=== PATIENT | female | born 1985 | race Caucasian/White ===

== ENCOUNTER 2018-07-25 03:12 | Inpatient (IN) | payer MEDICAID ==
[~2018-07-25] VITALS: Ht 157.5 cm; Wt 66.8 kg
[~2018-07-25 03:12] MED LIST: PREN1TAB13 PO
[2018-07-25 03:45] VITALS: BP 113/61; PULSE 77; RESP 18
[2018-07-25] MEDS ORDERED: LACTATED RINGER'S 1,000 ML IV SCH (04:55)
[2018-07-25] MEDS ORDERED: LACTATED RINGER'S 1,000 ML IV PRN (04:55)
[2018-07-25] MEDS ORDERED: OXYTOCIN 30 UNITS/LR 500 ML IV PRN ×2 (05:00→11:00)
[2018-07-25] MEDS ORDERED: OXYTOCIN 30 UNITS/LR 500 ML IV SCH ×3 (05:00→10:34)
[2018-07-25] MEDS ORDERED: MISOPROSTOL 200 MCG TAB PR PRN ×2 (05:00→11:00)
[2018-07-25] MEDS ORDERED: LIDOCAINE 1% (MPF) 30 ML INJ INJ PRN (05:00)
[2018-07-25] MEDS ORDERED: BUTORPHANOL 2 MG INJ IV PRN (05:00)
[2018-07-25] MEDS ORDERED: METHYLERGONOVINE 0.2 MG INJ IM PRN ×2 (05:00→11:00)
[2018-07-25] MEDS ORDERED: MINERAL OIL LIGHT 10 ML VIAL TOP ONE (05:00)
[2018-07-25] MEDS ORDERED: IBUPROFEN 600 MG TAB PO PRN (05:00)
[2018-07-25] MEDS ORDERED: CARBOPROST 250 MCG INJ IM PRN ×2 (05:00→11:00)
--- NOTE | 2018-07-25 05:17 | TRIAGE ---
OB Triage Datetime Report Generated by CPN: 07/25/2018 05:16 Datetime: 07/25/2018 04:30 Stage of : OB Triage Datetime: 07/25/2018 04:07 Stage of : OB Triage Labor Evaluation Frequency: 2-7 Monitor Mode: External Duration (sec)2399: 60 Quality: Moderate Pattern: Normal: <= 5 Contractions in 10 Minutes Resting Tone [place]: Relaxed Heart Rate FHR Baseline Rate: 120 Monitor Mode: External US FHR Baseline Changes: No Baseline Change Variability: Moderate 6-25 bpm Accelerations: 15X15 Decelerations: None Category: Category I Pain Assessment Pain Scale: 8 Pain Presence: Intermittent Pain Type: Contraction Pain Location: Abdomen Vaginal Exam Dilatation (cms): 4.0 Effacement (%): 80 Station: -1 Exam By: Ti Conner Status: Intact Vaginal Bleeding: Scant Cervix, Consistency: Soft Cervix, Position: Posterior Presentation 'A': Cephalic Datetime: 07/25/2018 03:47 Time of Arrival: 07/25/2018 03:10 EGA: 38.0 Arrived By: Wheelchair Arrived From: Home Chief Complaint: c/o ucs and spotting. BTL consent. 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 per PNR Movement: Present Contractions: Regular Time Contractions Began: 07/24/2018 20:00 Contractions: q4 Rupture of Membranes: Denies Vaginal Bleeding: Scant Vaginal Discharge: Present Recent Sexual Intercouse: Denies Abdominal Trauma: Not Applicable Patient Complaints: Contractions Time Provider Notified: 07/25/2018 04:30 Provider Notified: Dr Andrade Initial Plan: EFM,SVE Datetime: 07/25/2018 03:23 Stage of : OB Triage Maternal Assessment Level of Consciousness: Fully Conscious Headache: Denies Blurred Vision: No Respiratory Effort: Unlabored Nausea/Vomiting: Denies RUQ Epigastric Pain: Denies Facial Edema: None Monitor Mode: External Resting Tone [place]: Relaxed Heart Rate FHR Baseline Rate: 120 Monitor Mode: External US Pain Assessment Pain Scale: 8 Pain Presence: Intermittent Pain Type: Contraction Pain Location: Abdomen
--- NOTE | 2018-07-25 09:24 | HP ---
Date/Time of Note Date/Time of Note DATE: 07/25/18 TIME: 09:23 OB - History Hx of Present Free Text/Dictation term in active labor Care: Good Care Ultrasounds: Abnormal US findings (duodenal atresia) Obstetrical Complications: Other (anatomical abnormalities) Medical Complications: None Past Family/Social History * Past Medical, Surgical, Family and Obstetric Histories reviewed from chart. OB Admission Exam Vital Signs Vital Signs Vital Signs Date Temp Pulse Resp B/P (MAP) Pulse Ox O2 O2 Flow FiO2 Time Delivery Rate 07/25/18 98.7 77 18 113/61 Room Air 03:45 (78) Physical Exam HEENT: WNL Heart: Rhythm Normal Lungs: Clear, Equal Abdomen: WNL Extremities: Normal Reflexes: Normal Cervical Dilatation: 10cm Effacement: 100% Station: +3 Membranes: Ruptured Amniotic Fluid: Clear Heart Rate: 130's Accelerations: Accelerations Present Decelerations: No Decelerations Varibility: Marked Contractions on Admission: 6-10 Minutes Apart Intensity: Moderate Last 72 hours Lab Results CBC & BMP 07/25/18 05:49 OB Assessment/Plan Reason for admission: active labor Plan: Expectant Management VALENTINA VALADEZ MD Jul 25, 2018 09:24
--- NOTE | 2018-07-25 09:25 | LDN ---
Date/Time of Note Date/Time of Note DATE: 07/25/18 TIME: 09:24 Delivery Summary NSD W/O COMPLICATIONS Placenta Delivered: Spontaneously Meconium: none Episiotomy: No Perineal laceration: 1 Anesthesia type: Local Estimated blood loss: 300 Sponge & Needle done & correct: Yes All needle counts correct: Yes Any foreign bodies felt in the: No VALENTINA VALADEZ MD Jul 25, 2018 09:25
[2018-07-25] MEDS: LACTATED RINGER'S 1,000 ML IV* SCH ×2 (10:34→18:34)
[2018-07-25 10:35] VITALS: BP 112/66; PULSE 62; RESP 19
[2018-07-25] MEDS ORDERED: HYDROCODONE/APAP (5/325) TAB PO PRN (11:00)
[2018-07-25] MEDS ORDERED: ACETAMINOPHEN 325 MG TAB PO PRN (11:00)
[2018-07-25] MEDS ORDERED: ZOLPIDEM 5 MG TAB PO PRN (11:00)
[2018-07-25] MEDS ORDERED: MAGNESIUM HYDROXIDE 30ML CUP PO PRN (11:00)
[2018-07-25] MEDS ORDERED: SENNA/DOCUSATE NA (8.6MG/50MG) TAB PO PRN (11:00)
[2018-07-25] MEDS ORDERED: DIPHENHYDRAMINE 25 MG CAP PO PRN (11:00)
[2018-07-25] MEDS ORDERED: LANOLIN HPA 1 PKT TOP PRN (11:00)
[2018-07-25 11:05] VITALS: BP 115/61; PULSE 65; RESP 18
--- NOTE | 2018-07-25 11:28 | NUR ---
0925 pt transferred in stable condition via wheelchair with [place] to [place] [id number] [address] nicu to visit baby anali oliver. baby update and information on nicu provided. in pp report to Kelsi DISLA, ff@u, pit infusing via pump at 125ml.
[2018-07-25] MEDS: BENZOCAINE 20% 56 ML SPRAY TOP PRN (12:16)
[2018-07-25] MEDS: IBUPROFEN 800 MG TAB PO SCH ×2 (12:16→18:06)
[2018-07-25] MEDS: WITCH HAZEL/GLYCERIN PAD PR PRN (12:17)
[2018-07-25 16:00] VITALS: BP 100/56; PULSE 65; RESP 19
--- NOTE | 2018-07-25 18:26 | NUR ---
EOSS:PATIENT IN STABLE CONDITION.
[2018-07-25 20:00] VITALS: BP 116/58; PULSE 61; RESP 18
--- NOTE | 2018-07-25 23:00 | NUR ---
to nicu per wheelchair to see baby.
[2018-07-26] VITALS: BP 101/69; PULSE 57; RESP 17
[2018-07-26] MEDS: IBUPROFEN 800 MG TAB PO SCH ×4 (00:01→17:40)
--- NOTE | 2018-07-26 00:05 | NUR ---
returns from nicu per wheelchair. vs stable. some uterine cramping but motrin provides relief. breast pump set up and instructed how to use, how often, how to clean and how to save milk and label and store. she verbalizes understanding.
[2018-07-26 04:00] VITALS: BP 87/50; PULSE 65
--- NOTE | 2018-07-26 06:51 | NUR ---
EOSS: VS STABLE. AFEBRILE. VOIDING QS. FUNDUS FIRM WITH MOD LOCHIA RUBRA. AMBULATES ON OWN IN ROOM. MOTRIN FOR PAIN CONTROL WITH GOOD RELIEF.
--- NOTE | 2018-07-26 07:15 | NUR ---
baby in NICU This is her 4th child. Mother has not enroll in WIC and she will consult with about it. Discussed about WIC as support system. Mom refused to pump yesterday but this morning she will try. offered assistance and education on use frequency and cleaning of breast pumnp but mother declined. Educated mom on importance of BF and frequency of pumping to keep her milk supply and also educated on Benefits of EBF Risks of formula supplement. Mom verbally understood. Reported to RN RN to follow. Addendum: 07/26/18 at 0823 by WILD CASTRO Amended: Links added.
[2018-07-26 07:50] VITALS: BP 95/52; PULSE 59; RESP 18
--- NOTE | 2018-07-26 14:07 | QN ---
Documentation Comment PPD #1 s/p and baby in NICU Pt is doing fine. Bleeding is diminished from yesterday. She is pumping q 3 hours and has some colostrum. T=98.1 BP 95/52 Fundus firm. Lochia minimal Ext NT, no edema. WBC 7.5 Hgb 10.1 Plts 170K P: Continue care and plan d/c tomorrow. JOSE M IBRAHIM MD Jul 26, 2018 14:07
--- NOTE | 2018-07-26 15:07 | NUR ---
SS NOTE: Chart reviewed. Sw spoke with Pt at the bedside. 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 Pt understands the need of admission, coping adequately. Pt shares that she found out that baby was Trisomy 21 when she was 24 weeks . Pt acknowledges that she was in denial until the . Pt did not do any research on the dx. Pt did meet with a genetic counselor through the doctor. Pt she has a good family support system and has slowly told her family about her baby's condition. pt is to Bret Shin, : 12/31/1981, he is involved and supportive. Pt received good pnc, P: 3, x1sab at 13 wks. Pt has three sons at home ages 13, 11, & 4 who are healthy and happy. Pt is a homemaker and fob works in construction. pt denies any interpersonal problems, denies illicit drug use, etoh, tobacco, cps, or mental health issues. Pt has questions and concerns about pt's baby dx, became tearful. SW provided support & encouragement. Sw provided education and explained [facility]. SW provided written information [facility] and educated her on the available resources. SW will continue to follow up with pt throughout admission.
[2018-07-26 16:03] VITALS: BP 105/70; PULSE 70; RESP 20
--- NOTE | 2018-07-26 17:11 | NUR ---
EOSS; BONDING WELL, AMBULATING, VOIDING, PERINEUM CLEAN , VITAL SIGNS STABLE, WENT TO NICU TODAY TO SEE BABY, TEARFUL AT TIMES REGARDING BABY.
--- NOTE | 2018-07-26 18:16 | NUR ---
F/U Encouraged mom to apply for WIC in order to assist for her to get an Hospital grade breast pump for her to take home; however mother insists that she wont like to apply for WIC, LC support her decision. Suggested to request from her Dr's office from Medical, then mom agreed Reviewed information about use of her manual breast pump that comes with her kit , encouraged also to continue massage/hand expressing and frequency of pumping. LC extension on her board still for her to call if further assistance is needed. Many visitors in her room, mom declined any assistance at this moment. Reported to RN Addendum: 07/26/18 at 1820 by WILD CASTRO Amended: Links added.
[2018-07-26 20:30] VITALS: BP 113/76; PULSE 75; RESP 18
[2018-07-27] MEDS: IBUPROFEN 800 MG TAB PO SCH ×4 (00:59→15:46)
[2018-07-27 04:00] VITALS: BP 92/50; PULSE 62; RESP 16
--- NOTE | 2018-07-27 05:27 | NUR ---
EOSS:VS WNL VOIDING W/O DIFFICULTIES PUMPING AT BEDSIDE,PAIN WELL CONTROLLED WITH MOTRIN PO Q 6 HRS,MOVING TOWARDS GOALS.
[2018-07-27 08:25] VITALS: BP 90/51; PULSE 63; RESP 17
[2018-07-27] MEDS ORDERED: MEASLES,MUMPS,RUBELLA VACCINE INJ SC* ONE (09:00)
[2018-07-27] MEDS ORDERED: DIPHTH/TET/ACEL PERTUSS (ADULT) 0.5 ML VIAL IM* ONE (09:00)
[2018-07-27] MEDS ORDERED: VARICELLA VACCINE LIVE/PF 1,350 UNIT/0.5 ML ML SC* ONE (09:00)
--- NOTE | 2018-07-27 12:00 | NUR ---
SS NOTE: THIS SW MET WITH PT TO PROVIDE ANY SUPPORT AND ANSWER ANY QUESTIONS OR CONCERNS. PT SHARES THAT SHE IS DOING WELL AND HAS BEEN VISITING BABY REGULARLY. PT'S BABY IS PROGRESSING WITH TREATMENT. PT IS COMPLETING THE CCS FORM. PT'[place]DR[place] [id number] [place] [id number], PT'S PHYSICAL ADDRESS: [id number] [address] [place], [id number]. SW PROVIDED SUPPORT & ENCOURAGEMENT AND WILL FOLLOW UP IN THE NICU.
--- NOTE | 2018-07-27 14:30 | NUR ---
D/C INSTRUCTIONS GIVEN. PATIENT VERBALIZED UNDERSTANDING. TOLD PATIENT NOT TO CUT HER ID BANDS IN ORDER TO VISIT HER BABY IN NICU.
[2018-07-27] MEDS: WITCH HAZEL/GLYCERIN PAD PR PRN (14:38)
[2018-07-27] MEDS: BENZOCAINE 20% 56 ML SPRAY TOP PRN (14:39)
--- NOTE | 2018-07-27 16:00 | NUR ---
REPORT TAKEN FROM TOMMY DISLA.
--- NOTE | 2018-07-27 17:00 | NUR ---
SENT PT, TO NICU TO SEE HER BABY .
--- NOTE | 2018-07-27 18:09 | NUR ---
PT, BACK FROM NICU AND SHE GOING HOME WITH FATHER OF BABY . BABY IS IN NICU.
--- NOTE | 2018-08-13 11:54 | DS ---
Date/Time of Note Date/Time of Note DATE: 08/13/18 TIME: 11:53 Discharge Summary Admission/Discharge Info Admit Date/Time Jul 25, 2018 at 04:30 Discharge Date/Time Jul 27, 2018 at 18:31 Discharge Diagnosis term preg Patient Condition: Stable Hospital Course unremarkable Home Meds Reported Medications Vit-Iron Fumarate-FA ( Vitamins Tablet) 1 Tab Tablet, 1 TAB PO DAILY, TAB 06/30/14 Primary Care Provider Care Physician No Primary VALENTINA VALADEZ MD Aug 13, 2018 11:54
== END 2018-07-27 18:31 | disposition home or self-care (01) | DRG 807 ==
LOC: OBT 03:12 → L-D 03:17 → OBT 04:30 → L-D 04:30 → PP1 10:35
PROVIDERS: ADMIT Obstetrics & Gynecology; ATTEND Obstetrics & Gynecology
PROC: 10E0XZZ Delivery of Products of Conception, External Approach (ICD-10-PCS; principal; 2018-07-25)
PROC: 0HQ9XZZ Repair Perineum Skin, External Approach (ICD-10-PCS; 2018-07-25)
DX: O35.1XX0 Maternal care for (suspected) chromosomal abnormality in fetus, not applicable or unspecified (principal); Z37.0 Single live birth; O70.9 Perineal laceration during delivery, unspecified; Z3A.38 38 weeks gestation of pregnancy
CPT/HCPCS: 81001; 85025; 85610; 85730; 86592; 86762; 86850; 86900; 86901; 87086; 87340; 88307; 99464; G0463; J0595; J2210; J2590; J7120